=== PATIENT | male | born 1980 ===

== ENCOUNTER 2018-11-13 09:06 | Emergency (ER) | payer OTHER ==
[~2018-11-13] VITALS: Ht 177.8 cm; Wt 83.9 kg
== END 2018-11-13 21:48 | disposition home or self-care (01) ==
LOC: ER 09:06
DX: M94.0 Chondrocostal junction syndrome [Tietze] (principal); M62.838 Other muscle spasm

== ENCOUNTER → 2019-08-09 | Outpatient (CLI) | payer OTHER | END | disposition home or self-care (01) | LOC: RAD 08:48 | DX: M54.2 Cervicalgia (principal) ==